=== PATIENT | female | born 1965 | race Caucasian/White ===

== ENCOUNTER 2024-05-12 16:00 | Outpatient (CLI) | payer BC | END 2024-05-12 16:01 | disposition home or self-care (01) | LOC: CSHSLEEP 16:00 | PROVIDERS: ATTEND Student in an Organized Health Care Education/Training Program | DX: G47.9 Sleep disorder, unspecified (principal); R53.83 Other fatigue; F41.9 Anxiety disorder, unspecified; E66.9 Obesity, unspecified; Z68.30 Body mass index [BMI] 30.0-30.9, adult; R06.83 Snoring; G47.00 Insomnia, unspecified; I11.9 Hypertensive heart disease without heart failure; G47.33 Obstructive sleep apnea (adult) (pediatric) | CPT/HCPCS: 95800 ==